=== PATIENT | male | born 1975 | race Caucasian/White ===

== ENCOUNTER 2017-02-19 07:29 | Day surgery (SDC) | payer MEDICAID ==
[2017-02-19] MEDS ORDERED: LIDOCAINE 1% 5 ML SDV ID PRN (08:20)
[2017-02-19] MEDS ORDERED: LR 1,000 ML IV ONE (08:20)
[2017-02-19] MEDS ORDERED: PROPOFOL/EMULSION 500 MG/50 ML BOTTLE IV ONE (08:55)
--- NOTE | 2017-02-19 10:13 | GPN ---
[f rep st] PROCEDURE NOTE PREPROCEDURE DIAGNOSIS: Hematochezia. POSTPROCEDURE DIAGNOSES: 1. Grade 1 internal hemorrhoids. 2. A 5 mm sigmoid colon polyp status post removal with cold snare polypectomy. PROCEDURE: Colonoscopy with snare. INDICATION: Phan Baer is a 41-year-old male with a history of hematochezia who is here for a diag nostic colonoscopy. The risks and benefits of the procedure were discussed with the patient. Conse nt obtained. Risks include, but are not limited to, bleeding, perforation, risks associated with se dation. The patient is ASA class 1. DESCRIPTION OF PROCEDURE: The adult colonoscope was advanced to the terminal ileum which appeared n ormal. The cecum appears normal. Approximately 25% of the colon mucosa was obscured by stool precl uding visualization of polyps less than 1 cm. Ascending colon, hepatic flexure, transverse colon, s plenic flexure, descending colon appeared normal. There was a 5 mm polyp in the sigmoid colon which was removed using cold snare polypectomy and retrieved for pathology. Retroflexed views in the rec aliza showed grade 1 internal hemorrhoids which likely explains the rectal bleeding. IMPRESSION: 1. Poor colonoscopy preparation inadequate for screening purposes. 2. Grade 1 internal hemorrhoids which likely explains rectal bleeding. 3. A 5 mm sigmoid colon polyp status post removal with cold snare polypectomy. RECOMMENDATIONS: 1. Discharge home with escort. 2. Advance diet as tolerated. 3. Continue current medications. 4. Follow up pathology results. Results available within 10 days. 5. If the polyp is found to be adenomatous, he will need a repeat colonoscopy with the next [facility] appointment at the hospital with a 2 day GoLYTE prep given the inadequate colonoscopy prep. If the polyp is hyperplastic or benign, I recommend a repeat colonoscopy in 10 years. 6. I recommend a hydrocortisone suppository 25 mg to use rectally at night for 10 days for symptoma tic internal hemorrhoids. Thank you for allowing me to participate in the care of your patient. Please do not hesitate to oseas burris with questions. /[id number]/MODL
== END 2017-02-19 11:00 | disposition home or self-care (01) ==
LOC: FSGY 07:29
PROVIDERS: ATTEND Internal Medicine Gastroenterology
PROC: 0DBN8ZX Excision of Sigmoid Colon, Via Natural or Artificial Opening Endoscopic, Diagnostic (ICD-10-PCS; principal; 2017-02-19 09:15)
DX: K64.0 First degree hemorrhoids (principal); D12.5 Benign neoplasm of sigmoid colon; K62.5 Hemorrhage of anus and rectum
CPT/HCPCS: J2704

== ENCOUNTER 2017-03-18 09:37 | Day surgery (SDC) | payer MEDICAID ==
[2017-03-18] MEDS ORDERED: LIDOCAINE 1% 5 ML SDV ID PRN (10:50)
[2017-03-18] MEDS ORDERED: LR 1,000 ML IV ONE (10:50)
[2017-03-18] MEDS ORDERED: PROPOFOL/EMULSION 500 MG/50 ML BOTTLE IV ONE (11:34)
[2017-03-18] MEDS ORDERED: LIDOCAINE 2% 100 MG/5 ML SYR ONE (11:36)
--- NOTE | 2017-03-18 12:46 | GPN ---
[f rep st] PROCEDURE NOTE PREPROCEDURE DIAGNOSES: 1. History of colon polyp, which was a tubular adenoma, and poor colon prep. 2. As rectal bleeding. POSTPROCEDURE DIAGNOSES: 1. Grade 1 internal hemorrhoids. 2. A 1 cm transverse colon polyp, status post removal using hot snare polypectomy. NAME OF PROCEDURE: Colonoscopy with snare. MEDICATIONS: Monitored with anesthesia care. INDICATIONS: The patient is a 41-year-old male with history of rectal bleeding who initially underw ent colonoscopy for that reason, which showed a tubular adenomatous polyp and poor prep, as well as internal hemorrhoids. Because he had a tubular adenomatous polyp and a poor prep, I recommended jose t he have repeat colonoscopy, which he is undergoing today. The risks and benefits of the procedure were discussed with the patient. Consent obtained. Risks include, but not limited to, bleeding, p erforation, risks associated with sedation. The patient is ASA Class 1. DECRIPTION OF PROCEDURE: The adult colonoscope was advanced into the terminal ileum, which appeared normal. The appendiceal orifice, cecum, ileocecal valve, ascending colon, hepatic flexure appeared normal. The transverse colon showed a 1 cm flat polyp, which was removed using hot snare polypecto my technique. The splenic flexure was normal. Descending colon and sigmoid colon were normal. Ret roflexed views in the rectum showed grade 1 internal hemorrhoids. IMPRESSION: 1. Grade 1 internal hemorrhoids. 2. A 1 cm transverse colon polyp, status post removal using hot snare polypectomy. RECOMMENDATIONS: 1. Discharged home with escort. 2. Advance diet as tolerated. 3. Avoidance of constipation. 4. Rectal hydrocortisone suppositories for symptomatic internal hemorrhoids as needed. 5. Follow up with final path results once available within 10 days. 6. Repeat colonoscopy in 5 years, given history of tubular adenomatous polyp. Thank you for allowing me to participate in the care of your patient. Please do not hesitate to oseas burris with questions. /[id number]/MODL
== END 2017-03-18 13:34 | disposition home or self-care (01) ==
LOC: FSGY 09:37
PROVIDERS: ATTEND Internal Medicine Gastroenterology
PROC: 0DBL8ZX Excision of Transverse Colon, Via Natural or Artificial Opening Endoscopic, Diagnostic (ICD-10-PCS; principal; 2017-03-18 11:45)
PROC: 0DJD8ZZ Inspection of Lower Intestinal Tract, Via Natural or Artificial Opening Endoscopic (ICD-10-PCS; principal; 2017-03-18 11:45)
DX: D12.3 Benign neoplasm of transverse colon (principal); Z86.010 Personal history of colon polyps
CPT/HCPCS: J2001; J2704